=== PATIENT | male | born 1990 | race Caucasian/White ===

== ENCOUNTER 2017-07-08 06:23 | Day surgery (SDC) | payer OTHER ==
[2017-07-06 16:00] VITALS: BMI 26.9
[2017-07-08] MEDS ORDERED: BUPIVACAINE HCL/PF 0.5% (5MG/ML) 10 ML VIAL ONE (07:29)
[2017-07-08] MEDS ORDERED: LIDOCAINE HCL 1%, 10 MG/ML (20ML VIAL) ONE (07:29)
[2017-07-08] MEDS ORDERED: MIDAZOLAM HCL 2 MG/2 ML SINGLE DOSE VIAL ONE (07:46)
[2017-07-08] MEDS ORDERED: PROPOFOL 20 ML ONE ×4 (07:46→08:50)
[2017-07-08] MEDS ORDERED: PROMETHAZINE HCL 25 MG/1 ML VIAL IVPUSH PRN (08:03)
[2017-07-08] MEDS ORDERED: ONDANSETRON 4 MG/2 ML VIAL IVPUSH PRN (08:03)
[2017-07-08] MEDS ORDERED: LACTATED RINGERS SOLUTION 1,000 ML IV SCH (08:15)
[2017-07-08] MEDS ORDERED: LIDOCAINE HCL/PF 2% SDV 5ML VIAL ONE (08:24)
[2017-07-08] MEDS ORDERED: SODIUM CHLORIDE 0.9% P/F 10 ML VIAL IJ ONE (08:25)
[2017-07-08] MEDS ORDERED: ceFAZolin SODIUM 1 GM VIAL ONE (08:25)
[2017-07-08] MEDS ORDERED: LIDOCAINE 1%/EPI 1:100000 (50 ML MULTI DOSE VIAL) ONE (08:36)
[2017-07-08] MEDS ORDERED: KETOROLAC TROMETHAMINE 30 MG/1 ML VIAL ONE (08:37)
[2017-07-08] MEDS ORDERED: LIDOCAINE 1%/EPI 1:100000 (20 ML MULTI DOSE VIAL) IJ ONE ×2 (08:40→08:59)
[2017-07-08 10:11] VITALS: TEMP 98
[2017-07-08 11:40] VITALS: PULSE 70
[2017-07-08 11:52] VITALS: BP 111/50
--- NOTE | 2017-07-08 11:57 | HP ---
Satellite [facility] - Chief Complaint Chief Complaint: Mass x 3: Left chest wall, left abdominal wall, right back History Source: Patient, Medical Record Limitations to Obtaining History: No Limitations - Past Medical History Allergies/Adverse Reactions: Allergies Allergy/AdvReac Type Severity Reaction Status Date / Time No Known Allergies Allergy Verified 07/08/17 07:01 - Current Medications Current Medications: Home Medications Medication Instructions Recorded Docusate Sodium [Colace -] 100 mg PO TID #90 capsule 07/08/17 Oxycodone HCl/Acetaminophen 1 - 2 tab PO Q6H #28 tab MDD 4 07/08/17 [Percocet 5-325 mg Tablet] Satellite Physical Exam - Physical Examination Vital Signs: Vital Signs Period Temp Pulse Resp BP Sys/Mays Pulse Ox Last 24 Hr 97.6 F-98.0 F 70-86 16-20 111-134/50-78 99-100 General Appearance: Alert & Oriented x3 ENT: Clear Lung: Clear to auscultation Heart: Regular rate & rhythm Abdomen: Soft, No tenderness Neurological: Alert, Oriented Satellite Impression/Plan - Impression/Plan Impression: Mass x 3: left chest wall, abdominal wall, right back Operative Procedure: Excision of left chest wall mass, left abdominal wall mass , right back mass Date to be Performed: 07/08/17
--- NOTE | 2017-07-08 11:58 | OP ---
Operative Note - Note: Operative Date: 07/08/17 Pre-Operative Diagnosis: Left chest wall mass, left abdominal wall mass, right back mass Operation: Excision of left chest wall mass, left abdominal wall mass, right back mass Post-Operative Diagnosis: Same as Pre-op Surgeon: William Cuellar Anesthesia: Local, MAC Specimens Removed: Left chest wall mass, left abdominal wall mass, right back mass Estimated Blood Loss (mls): 5 Operative Report Dictated: Yes
--- NOTE | 2017-07-08 13:07 | OP ---
DATE OF OPERATION: 07/08/2017 SURGEON: Curt Cuellar MD PREOPERATIVE DIAGNOSIS: Left chest wall mass, left abdominal wall mass, right back mass. POSTOPERATIVE DIAGNOSIS: Left chest wall mass, left abdominal wall mass, right back mass. PROCEDURE: Excision of left chest wall mass, left abdominal wall mass, right back mass. SPECIMEN: Left chest wall mass, left abdominal wall mass, right back mass. ESTIMATED BLOOD LOSS: 5 mL. DRAINS: None. ANESTHESIA: MAC/local. REASON FOR PROCEDURE: This is a 26-year-old gentleman who presents in the office for evaluation of a left chest wall mass, left abdominal wall mass, and right back mass. Because of this, he was consented for excision of all 3 of these masses. The risks and benefits of the procedure were explained. These included bleeding, infection, recurrence of masses, injury to surrounding structures, KS, DVT, PE. He understood and signed informed consent. DESCRIPTION OF PROCEDURE: The patient was placed in the right lateral decubitus position. The right back mass was prepped and draped in the usual sterile fashion. Lidocaine with epinephrine was injected into the site after a time-out was performed. A transverse incision was made, and the mass was dissected circumferentially. The mass was grasped, exteriorized, fully excised, and sent off the field. Hemostasis was achieved, and the wound was irrigated. Then 3-0 Vicryl was used to close the deep subcutaneous tissue, and a 4-0 Biosyn was used to close the subdermal layer. Sterile dressings were applied. The patient was then placed in a supine position. The field was reprepped and draped in the usual sterile fashion. Lidocaine with epinephrine was used at both the left chest wall and the left abdominal wall sites. Transverse incisions were made in each, and again, the same surgical technique was performed. Both masses were circumferentially dissected, exteriorized, and removed. These were both sent off the field. Hemostasis was achieved at both sites, and irrigation was performed at both sites. Then 3-0 Vicryl suture was used to close both deep dermal layers, and 4-0 Biosyn was used to close both subdermal layers. Sterile dressings were applied. The patient tolerated the procedure well and was transferred to the recovery room in stable condition. CURT CUELLAR M.D. [id number]
--- NOTE | 2017-07-09 13:39 | PATH ---
Surgical Pathology Report Patient Name: JATINDER CAROLINA [facility]. Rec. #: [id number] /Age/Gender: 1990 (Age: 26) / M Account: [id number] Location: [facility] SURGICAL Taken: 07/08/2017 Received: 07/08/2017 Reported: 07/09/2017 Physicians: William Cuellar M.D. Specimen(s) Received A: RIGHT BACK MASS B: LEFT ABDOMINAL MASS C: LEFT CHEST WALL MASS Clinical History Abdominal and chest wall masses Final Diagnosis A. SOFT TISSUE, RIGHT BACK MASS, EXCISION: CONSISTENT WITH ANGIOLIPOMA. B. SOFT TISSUE, LEFT ABDOMINAL MASS, EXCISION: CONSISTENT WITH ANGIOLIPOMA. C. SOFT TISSUE, LEFT CHEST WALL MASS, EXCISION: CONSISTENT WITH ANGIOLIPOMA. Electronically Signed Manish Herrera M.D. Gross Description A. Received in formalin labeled "right back mass" is a 2.5 x 2.3 x 0.8 cm aggregate of 3 guerra-yellow portions of lobulated adipose tissue. Sectioning reveals homogeneous yellow, smooth fat. No areas of hemorrhage or necrosis are identified. [employer] sections are submitted in one cassette. B. Received in formalin labeled "left abdominal mass" is a 3.3 x 2.0 x 1.0 cm portion of yellow, lobulated adipose tissue. Sectioning reveals homogeneous yellow, smooth fat. No areas of hemorrhage or necrosis are identified. [employer] sections are submitted in 2 cassettes. C. Received in formalin labeled "left chest wall mass" is a 2.0 x 1.2 x 0.6 cm portion of yellow, lobulated adipose tissue. Sectioning reveals homogeneous yellow, smooth fat. No areas of hemorrhage or necrosis are identified. [employer] sections are submitted in one cassette. DL/07/08/2017 saudi/07/08/2017
== END 2017-07-08 11:05 | disposition home or self-care (01) ==
LOC: JASU-SURG 06:23
PROVIDERS: ATTEND Surgery
PROC: 0JB60ZZ Excision of Chest Subcutaneous Tissue and Fascia, Open Approach (ICD-10-PCS; 2017-07-08)
PROC: 0JB70ZZ Excision of Back Subcutaneous Tissue and Fascia, Open Approach (ICD-10-PCS; 2017-07-08)
PROC: 0JB80ZZ Excision of Abdomen Subcutaneous Tissue and Fascia, Open Approach (ICD-10-PCS; principal; 2017-07-08 08:00)
DX: D17.1 Benign lipomatous neoplasm of skin and subcutaneous tissue of trunk (principal)
CPT/HCPCS: 88304-TC; 94760